=== PATIENT | female | born 1990 | race Hispanic/Latino ===

== ENCOUNTER 2018-06-23 10:26 | Emergency (ER) | payer SELFPAY | END 2018-06-23 11:34 | disposition home or self-care (01) | LOC: ERS 10:26 | DX: J06.9 Acute upper respiratory infection, unspecified (principal); J45.901 Unspecified asthma with (acute) exacerbation; G43.909 Migraine, unspecified, not intractable, without status migrainosus; J45.909 Unspecified asthma, uncomplicated; I10 Essential (primary) hypertension; F41.9 Anxiety disorder, unspecified; Z79.899 Other long term (current) drug therapy | CPT/HCPCS: 94640; J7620 ==

== ENCOUNTER 2019-11-20 04:50 | Emergency (ER) | payer SELFPAY ==
--- NOTE | 2019-11-20 07:46 | RAD ---
Right ankle 3 views HISTORY: Injury. COMPARISON: 09/30/2008. FINDINGS: Ankle mortise and talar dome are intact. No acute fracture, dislocation, or aggressive osse ous erosions. IMPRESSION : No acute osseous abnormalities are demonstrated.
== END 2019-11-20 05:22 | disposition home or self-care (01) ==
LOC: ERS 04:50
DX: S93.401A Sprain of unspecified ligament of right ankle, initial encounter (principal); F41.9 Anxiety disorder, unspecified; G43.909 Migraine, unspecified, not intractable, without status migrainosus; I10 Essential (primary) hypertension; W18.30XA Fall on same level, unspecified, initial encounter

== ENCOUNTER 2023-07-17 12:24 | Emergency (ER) | payer BC | END 2023-07-17 13:50 | disposition short-term general hospital (02) | LOC: ERS 12:24 | DX: O99.891 Other specified diseases and conditions complicating pregnancy (principal); R10.9 Unspecified abdominal pain; I10 Essential (primary) hypertension; Z3A.28 28 weeks gestation of pregnancy | CPT/HCPCS: 99284 ==